=== PATIENT | male | born 1985 | race Caucasian/White ===

== ENCOUNTER 2019-08-21 11:18 | Emergency (ER) | payer OTHER ==
[2019-08-21 11:27] VITALS: PULSE 88; TEMP 97.8
[2019-08-21] MEDS ORDERED: DIPH,PERTUS(ACELL)TETVAC-LF 0.5 ML VIAL IM ONE (11:40)
--- NOTE | 2019-08-21 11:43 | ED ---
General Adult HPI - General Chief complaint: Fall Stated complaint: Fell hit head Time Seen by Provider: 08/21/19 11:31 Source: patient, family, RN notes reviewed, old records reviewed Mode of arrival: ambulatory Limitations: no limitations - History of Present Illness Initial comments: 34-year-old male presents status post fall with head injury. Patient fell approximately 12 hours ago striking the right side of his forehead. He had laceration of the forehead associated with the fall. He does admit to alcohol consumption. He is complaining of some nausea and not feeling well this morning. No focal numbness or weakness. He does complain of some neck pain associated with the head injury. He has no chronic medical problems. No anticoagulation. No chest pain or abdominal pain. No vomiting just nausea. No extremity injury. No thoracic or lumbar pain. - Related Data Home Medications Medication Instructions Recorded Confirmed Naproxen [Naprosyn] 500 mg PO Q12HR PRN 03/29/16 03/29/16 Ondansetron HCl [Zofran] 4 mg PO Q8HR PRN 03/29/16 03/29/16 Previous Rx's Medication Instructions Recorded Meclizine [Antivert] 25 mg PO Q8H PRN #12 tab 03/29/16 Allergies Allergy/AdvReac Type Severity Reaction Status Date / Time No Known Allergies Allergy Verified 08/21/19 11:24 Review of Systems ROS Statement: Those systems with pertinent positive or pertinent negative responses have been documented in the HPI. ROS Other: All systems not noted in ROS Statement are negative. Past Medical History Past Medical History: No Reported History History of Any Multi-Drug Resistant Organisms: None Reported Past Surgical History: No Surgical Hx Reported Past Psychological History: No Psychological Hx Reported Smoking Status: Current every day smoker Past Alcohol Use History: Occasional Past Drug Use History: Marijuana General Exam Limitations: no limitations General appearance: alert, in no apparent distress Head exam: Present: normocephalic, other (Right forehead laceration between the hairline and forehead. This is approximately 3 cm in length, partial-thickness, no active bleeding.) Eye exam: Present: normal appearance, PERRL, EOMI Neck exam: Present: normal inspection, tenderness (Paraspinal tenderness to palpation, no midline tenderness) Respiratory exam: Present: normal lung sounds bilaterally. Absent: respiratory distress, wheezes Cardiovascular Exam: Present: regular rate, normal rhythm GI/Abdominal exam: Present: soft. Absent: distended, tenderness, guarding Extremities exam: Present: normal inspection, full ROM Neurological exam: Present: alert, oriented X3, CN II-XII intact. Absent: motor sensory deficit Skin exam: Present: warm, dry. Absent: cyanosis, diaphoretic Course Vital Signs 08/21/19 11:25 Temperature 97.8 F Pulse Rate 88 Respiratory 16 Rate Blood Pressure 124/85 O2 Sat by Pulse 94 L Oximetry Procedures - Laceration Laceration #1 Consent Obtained: verbal consent Indication: laceration Site: scalp Description: linear Depth: simple, single layer Pre-repair: wound explored, irrigated extensively, deep structures intact Type of Sutures: other (Dermabond) Technique: other Patient Tolerated Procedure: well Medical Decision Making - Medical Decision Making 34-year-old male with head injury status post fall and superficial laceration of the forehead. Laceration is cleansed with chlorhexidine and irrigated, simple very superficial laceration which is repaired with Dermabond. Head CT is obtained given the symptoms of nausea with concern for intracranial hemorrhage. CT is negative for intracranial hemorrhage or mass effect. Cervical spine negative for fracture subluxation. Patient will be discharged with outpatient follow-up at this time. Disposition Clinical Impression: Concussion, Laceration Disposition: HOME SELF-CARE Condition: Good Instructions (If sedation given, give patient instructions): Laceration (ED), Concussion (ED), Post Concussion Syndrome (ED) Is patient prescribed a controlled substance at d/c from ED?: No Referrals: None,Stated [Primary Care Provider] - 1-2 days Rylan Chand MD [STAFF PHYSICIAN] - 1-2 days Time of Disposition: 12:28
[2019-08-21] MEDS ORDERED: TOPICAL SKIN ADHESIVE 1 EACH AMP TOPICAL ONE (11:53)
--- NOTE | 2019-08-21 12:28 | CT ---
EXAMINATION TYPE: CT brain lindyine wo con DATE OF EXAM: 08/21/2019 COMPARISON: CT brain dated 03/29/2016 HISTORY: Fall yesterday with frontal laceration. head and neck pain CT DLP: 1477.6 mGycm. Automated Exposure Control for Dose Reduction was Utilized. TECHNIQUE: CT scan of the head and cervical spine are performed without contrast. FINDINGS: There is no acute intracranial hemorrhage, mass effect, or midline shift identified. The ventricles and sulci are within normal limits in size. The globes are intact and the visualized sin uses are clear. Subcutaneous fat stranding of the right frontal scalp. Cervical spine is visualized in its entirety from C1 through upper thoracic levels and demonstrates s atisfactory alignment without evidence of acute fracture or dislocation. Prevertebral soft tissue ap pears within normal limits. The C1-C2 articulation is unremarkable. IMPRESSION: 1. There is no acute fracture or dislocation evident in the cervical spine. 2. No acute intracranial hemorrhage, mass effect, or midline shift is seen. Small right frontal subcu taneous contusion. No underlying measurable hematoma.
[2019-08-21 12:32] VITALS: BP 122/78; RESP 18
== END 2019-08-21 12:31 | disposition home or self-care (01) ==
LOC: EC 11:18
DX: S06.0X0A Concussion without loss of consciousness, initial encounter (principal); S01.01XA Laceration without foreign body of scalp, initial encounter; Z23 Encounter for immunization; F17.200 Nicotine dependence, unspecified, uncomplicated; W18.09XA Striking against other object with subsequent fall, initial encounter
CPT/HCPCS: 12002; 70450; 72125; 90471; 90715; 99284

== ENCOUNTER → 2020-05-17 | Outpatient (CLI) | payer BC, OTHER | END | disposition home or self-care (01) | LOC: LABWHC1 09:02 | PROVIDERS: ATTEND Family Medicine | DX: Z20.828 Contact with and (suspected) exposure to other viral communicable diseases (principal) | CPT/HCPCS: U0003; C9803 ==